=== PATIENT | female | born 1970 | race Caucasian/White ===

== ENCOUNTER 2022-04-17 08:19 | Emergency (ER) | payer OTHER, SELFPAY ==
[2022-04-17 08:21] VITALS: BP 170/80; PULSE 95; RESP 16; TEMP 36.7; O2SAT 97; BMI 43.2
--- NOTE | 2022-04-17 09:19 | ED.EAR ---
HPI - Ear Problem General Chief complaint: Ear Problems Stated complaint: ear infection Time Seen by Provider: 04/17/22 08:52 Source: patient Mode of arrival: ambulatory Limitations: no limitations History of Present Illness HPI Narrative: This is a 51-year-old female with a history of diabetes, hypertension who presents with bilateral ear pain for the last several weeks. Patient reports pressure in the ears, popping sensation, pain right greater than left. Patient reports over [place] she had several days of subjective fevers and chills. This has resolved. She denies any hearing loss, fever currently, neck pain or neck stiffness, sore throat, congestion, headache, difficulty breathing, chest pain, abdominal pain, vomiting or diarrhea. Patient reports she currently has a primary care doctor at [facility] but has not seen them for this issue. Patient reports her partners ex works in medical records at [employer] and is currently stalking her. Therefore she has been hesitant to see her providers at [facility] d/t this. Related Data Previous Rx's Medication Instructions Recorded amoxicillin 500 mg capsule 500 mg PO BID #20 caps 04/17/22 Allergies Allergy/AdvReac Type Severity Reaction Status Date / Time lisinopril AdvReac Cough Verified 04/17/22 08:24 Review of Systems Review of Systems: Yes all other systems are reviewed and are negative Constitutional: Constitutional: Reports no additional constitutional complaints, Denies body ache(s), Denies chills, Denies fever(s), Denies headache(s) and Denies weakness Eyes: Eyes: Reports no additional eye complaints and Denies change in vision ENT: Reports system reviewed and no additional complaints, except as documented, Denies dizziness, Denies ear discharge, Reports otalgia, Denies headache(s), Denies hearing loss, Denies nasal congestion, Denies nasal discharge and Denies neck pain Cardiovascular: Cardiovascular: Reports no additional cardiovascular complaints, Denies chest pain, Denies leg edema and Denies dyspnea Respiratory: Respiratory: Reports no additional respiratory complaints, Denies cough and Denies dyspnea Gastrointestinal: Gastrointestinal: Reports no additional gastrointestinal complaints, Denies abdominal pain, Denies diarrhea, Denies nausea and Denies vomiting Genitourinary: Genitourinary: Reports no additional female genitourinary complaints and Denies urinary incontinence Musculoskeletal: Musculoskeletal: Reports no additional musculoskeletal complaints, Denies back pain, Denies arthralgias, Denies joint swelling, Denies neck pain, Denies numbness and Denies tingling Integumentary/Breasts: Skin/Breast: Reports system reviewed and no additional complaints, except as docu and Denies rash Neurologic: Reports system reviewed and no additional complaints, except as documented, Denies dizziness, Denies headache(s), Denies numbness, Denies tingling and Denies weakness [facility] Past Medical History Attestation statement: The following information was validated with the patient. Source: old records reviewed and nursing notes reviewed Social History Social History Advance Directives: No Advance Directives Information Provided: No Physical Exam Vital Signs: Vital Signs: Last Vital Signs Temp 98.1 F 04/17/22 08:21 Pulse 95 04/17/22 08:21 Resp 16 04/17/22 08:21 BP 170/80 H 04/17/22 08:21 Pulse Ox 97 04/17/22 08:21 O2 Del Method 04/17/22 08:21 BMI result Body Mass Index 43.2 Const: General: cooperative, healthy appearing, comfortable and no acute distress Orientation/consciousness: patient oriented x3 Limitations: no limitations HEENT: Head: Yes normal to inspection Ears: hearing grossly normal bilaterally, EAC's normal, mastoids normal, no periauricular adenopathy and TM abnormal (Bilateral TM bulging with effusion. Right TM with erythema) General nose exam: Normal external nose present Face and sinus: Yes normal facial exam Mouth: Normal oral and palatal mucosa present Throat: Yes posterior oropharynx normal, Yes tonsils normal and Yes uvula midline Eyes: General: appearance normal, both eyes and all related structures Pupils: Equal, round and reactive pupils present Neck: Neck: Yes normal visual inspection, Yes full ROM and Yes no lymphadenopathy Chest: Chest palpation & inspection: normal inspection of the chest Resp: Effort & Inspection: normal respiratory effort Auscultation: clear to auscultation bilaterally Cardio: Rate: regular rate Rhythm: regular rhythm Peripheral pulses: Peripheral pulses 2+ throughout Back/Spine/Pelvis: Thoracic/Lumbar Spine: thoracic and lumbar spine normal to inspection Skin: General skin exam: no rashes or lesions noted Neuro: General: patient oriented x3 and moves all extremities Cranial nerves: Yes Equal, round and reactive pupils present Cognition (Neuro): normal cognition Gait exam (Neuro): Normal gait present Extrem: General: Yes normal to inspection Medical Decision Making Medical Decision Making MDM Narrative: 51-year-old female with history of diabetes presents with bilateral ear pain right greater than left for several weeks with prodrome of febrile illness which has now resolved. Exam is consistent bilateral effusion, bulging with right otitis media No evidence of mastoiditis, otitis externa Patient be treated with course of antibiotics. Recommend [id number] allergy medication, Sudafed to help with bilateral effusion Differential Diagnosis Differential Diagnoses: The differential diagnosis associated with the presentation includes Mastoiditis, otitis externa, otitis media Independent Historian Clinical information obtained from an independent historian. History obtained from or confirmed by: Spouse (Spouse at bedside provides additional HPI) Prescription Management I considered prescription management with: Antibiotic Antibiotic treatment with amoxicillin for right otitis media Chronic Conditions Patient?s care impacted by: Diabetes Discharge Plan Discharge Clinical Impression: Otitis media, Eustachian tube dysfunction Patient Disposition: Home, Self-Care Instructions: Ear Infection (ED) Additional Instructions: Take Motrin or Tylenol for pain as needed Take Claritin or Zyrtec daily Take Sudafed daily Follow-up with your primary care doctor to determine resolution Prescriptions: New amoxicillin 500 mg capsule 500 mg PO BID Qty: 20 0RF Referrals: Nadya Garcia PA [Primary Care Provider] - 10 days Interventions: ED Discharge Assessment Last Done: 04/17/22 09:40 Discharge Date/Time: 04/17/22 09:42
== END 2022-04-17 09:42 | disposition home or self-care (01) ==
PROVIDERS: Emergency Provider Student in an Organized Health Care Education/Training Program; PCP Student in an Organized Health Care Education/Training Program
DX: H66.93 Otitis media, unspecified, bilateral (principal); H69.81 Other specified disorders of Eustachian tube, right ear; E11.9 Type 2 diabetes mellitus without complications; I10 Essential (primary) hypertension
CPT/HCPCS: 99282; 99283

== ENCOUNTER 2024-03-05 19:13 | Emergency (ER) | payer OTHER, SELFPAY ==
--- NOTE | ~2024-03-05 | CT_ITS ---
EXAMINATION CT HEAD WITHOUT CONTRAST CLINICAL INFORMATION: Occipital headache COMPARISON: None TECHNIQUE: CT of the head was performed without intravenous contrast. Reformatted axial, coronal, and sagittal images were reviewed. This CT examination was performed using dose optimization techniques as appropriate, variously including the following: *Automated exposure control *Adjustment of mA and/or kV according to patient size (this includes techniques or standardized protocols for targeted exams where dose is matched to indication/reason for exam; i.e. extremities or head) *Use of iterative reconstruction technique DLP: 800 mGy-cm FINDINGS: No intracranial hemorrhage, extra-axial fluid collection, or midline shift is identified. Menjivar-white matter differentiation is preserved. The ventricles are within normal limits. Basal cisterns are within normal limits. Paranasal sinuses are clear. Mastoid air cells and middle ear cavities are clear. No acute calvarial fractures. CT/CT head/brain wo IV con IMPRESSION: No acute intracranial abnormality. Electronically signed by: Romeo Balderas DO 03/05/2024 11:06 PM ANDRE
[2024-03-05 19:15] VITALS: BP 118/57; PULSE 75; RESP 18; TEMP 37.2; O2SAT 97; BMI 37.2
--- NOTE | 2024-03-05 19:15 | ED.GENADULT ---
HPI - General Adult General Chief complaint: Abdominal Pain Stated complaint: neck/headache, symptoms of pancreatitis Time Seen by Provider: 03/05/24 20:21 History of Present Illness ED Provider: Huber ROBIN narrative: The patient is a 53-year-old female with a history of multiple medical problems. She says that in 2018 she had an episode of severe pancreatitis. At that time she was living in [place]. She says she was in the intensive care unit for several days. She also says that her hemoglobin A1c and her triglycerides were very high at that time. She says that subsequently she had her gallbladder removed although she does not believe she had gallstone pancreatitis (she is not sure however). The patient says that she has been having upper abdominal pain in the same area as her pancreatitis pain over the last several days. The pain is worse with eating. The patient also says that she has been having pain in the back of her head also over the last several days. She says this pain is also worse with eating. Related Data Home Medications ?Medication ?Instructions ?Recorded ?Confirmed atorvastatin 40 mg tablet 40 mg PO DAILY 03/05/24 03/05/24 clonidine HCl 0.3 mg tablet 0.3 mg PO BID 03/05/24 03/05/24 donepezil 5 mg tablet 5 mg PO DAILY 03/05/24 03/05/24 ergocalciferol (vitamin D2) 1,250 1,250 mcg PO QWEEK 03/05/24 03/05/24 mcg (50,000 unit) capsule fenofibrate 160 mg tablet 160 mg PO DAILY 03/05/24 03/05/24 flash glucose sensor (FreeStyle 03/05/24 03/05/24 Chilo 2 Sensor kit) hydrochlorothiazide 25 mg tablet 25 mg PO DAILY 03/05/24 03/05/24 insulin glargine 100 unit/mL 60 unit subcut 03/05/24 subcutaneous solution (Lantus U-100 Insulin) insulin lispro 100 unit/mL subcut 03/05/24 subcutaneous pen levothyroxine 100 mcg tablet 100 mcg PO DAILY 03/05/24 03/05/24 losartan 50 mg tablet 50 mg PO DAILY 03/05/24 03/05/24 metformin 500 mg tablet 1,000 mg PO BID 03/05/24 03/05/24 minoxidil 2.5 mg tablet PO 03/05/24 nortriptyline 25 mg capsule 25 mg PO BEDTIME 03/05/24 03/05/24 omeprazole 20 mg capsule,delayed 20 mg PO DAILY 03/05/24 03/05/24 release pregabalin 200 mg capsule 200 mg PO BID 03/05/24 03/05/24 sertraline 100 mg tablet 100 mg PO DAILY 03/05/24 03/05/24 spironolactone 25 mg tablet 25 mg PO BID 03/05/24 03/05/24 Previous Rx's ?Medication ?Instructions ?Recorded amoxicillin 500 mg capsule 500 mg PO BID #20 caps 04/17/22 Allergies Allergy/AdvReac Type Severity Reaction Status Date / Time lisinopril AdvReac Cough Verified 03/05/24 19:21 Review of Systems Review of Systems: Yes all other systems are reviewed and are negative [facility] Social History Social History Smoked in Last 30 Days: No Use of substances other than those prescribed or required for medical reasons: No Advance Directives: No Advance Directives Information Provided: Yes Physical Exam ED Vital Signs: Vital Signs - 24 hr 03/05/24 19:15 03/05/24 22:10 03/05/24 23:08 Temperature 98.9 F 98.5 F 98.1 F Pulse Rate 75 59 63 Respiratory Rate 18 18 18 Blood Pressure 118/57 L 101/52 L 97/48 L Pulse Oximetry 97 95 95 Oxygen Delivery Method Room Air Room Air Room Air BMI result Body Mass Index 37.2 Const Other: The patient is a 53-year-old woman who was awake and alert. She has a BMI of 37. Her mental status seems normal. She looks somewhat chronically ill but does not appear obviously acutely ill. Does not seem in obvious discomfort or altered in any way. HENMT Other: Face is symmetrical. Mucous membranes are moist. There is some tenderness to the right occipital scalp. No definite mass or other distinct abnormality appreciated. Eyes Other: Pupils are round equal, conjunctivae are clear, extraocular movements intact Neck Neck: Yes full ROM and Yes supple Resp Effort & Inspection: normal respiratory effort Auscultation: clear to auscultation bilaterally Cardio Rate: regular rate Rhythm: regular rhythm Heart sounds: S1 normal heart sound present and S2 normal heart sound present GI Other: There is some epigastric and general upper abdominal tenderness, mostly in the left upper quadrant. No definite rebound or guarding. The patient indicates that she feels there is a swelling or mass in the left upper abdomen. I do not appreciate any definite discrete mass. Skin General skin exam: no rashes or lesions noted Neuro Other: The patient is awake and alert normal mental status. Cranial nerves are grossly intact. Her neck is supple. She moves her extremities symmetrically with normal strength and coordination and seems to be neurologically intact. Extrem Other: No peripheral edema, no asymmetry Course Course Course Narrative: This is a rapid medical exam performed by Delmer Fernandez NP: Additional HPI, ROS, PE not included below will be deferred to primary provider. Patient is a 53-year-old female with history of pancreatitis, insulin dependent T2DM, fibromyalgia, dementia presenting to the emergency department with complaint of upper abdominal pain x 1 week, nausea/dry heaves. Had an unrelated ultrasound yesterday and pain increased with pressure to upper abdomen. Took an old dilaudid yesterday which did not help. Also complaining of occipital pain, describes as pain to the skin, specifies that it is not a headache. Both symptoms worse with eating. Abdominal pain radiating through to back. Plan: labs, viral serology Medications Administered Discontinued Medications Generic Name Dose Route Start Last Admin Trade Name Clover PRN Reason Stop Dose Admin Diphenhydramine HCl 25 mg 03/05/24 20:57 03/05/24 21:37 Diphenhydramine Hcl 50 Mg/Ml Vial IVPUSH 03/05/24 20:58 25 mg ONCE ONE Administration Sodium Chloride 1,000 mls @ 999 mls/hr 03/05/24 21:00 03/05/24 23:00 Ns IV 03/05/24 22:00 Infused .Q1H1M ELEAZAR Infusion Ketorolac Tromethamine 10 mg 03/05/24 20:57 03/05/24 21:37 Ketorolac Tromethamine 15 Mg/Ml Vial IVPUSH 03/05/24 20:58 10 mg ONCE ONE Administration Metoclopramide HCl 10 mg 03/05/24 20:57 03/05/24 21:37 Metoclopramide Hcl 10 Mg/2 Ml Vial IVPUSH 03/05/24 20:58 10 mg ONCE ONE Administration Medical Decision Making Medical Decision Making MDM Narrative: The patient is a 53-year-old female with a complex past medical history who presents complaining of upper abdominal pain and also occipital headaches over the last few days. Both of these symptoms seem to be related to and exacerbated by eating. The patient is already on a proton pump inhibitor. The the patient has a history of a significant episode of pancreatitis several years ago. She does not seem to describe recurrent episodes. She was worried that her upper abdominal pain today might represent a recurrence. The patient's lipase is normal as are her other labs. She was reassured she does not seem to have recurrent pancreatitis. The patient was also quite concerned about her headache. A head CT is negative. She was treated with IV ketorolac, metoclopramide, and diphenhydramine. She seemed to feel better. I think she may be discharged and should follow up with her PCP regarding these complaints of upper abdominal pain and her occipital headache. Lab Data 03/05/24 19:48 03/05/24 19:47 Labs: Lab Results 03/05/24 03/05/24 03/05/24 Range/Units 19:47 19:48 20:00 WBC 3.6 L (4.8-10.8) X10*3/uL RBC 4.57 (4.20-5.50) X10*6/uL Hgb 12.5 (12.0-16.0) g/dl Hct 37.0 (37.0-47.0) % MCV 81.0 (80.0-98.0) fL MCH 27.4 (27.0-33.0) pg MCHC 33.8 (31.0-35.0) g/dl RDW 15.4 (11.0-16.0) % Plt Count 168 (160-400) X10*3/uL MPV 10.6 (9.4-12.3) fL Immature Gran % (Auto) 0.3 (0.0-0.4) % Neut % (Auto) 62.3 (45-73) % Lymph % (Auto) 30.5 (20-40) % [place] % (Auto) 5.0 (2-11) % Eos % (Auto) 1.1 (0-4) % Baso % (Auto) 0.8 (0-2) % Lymph # (Auto) 1.1 L (1.2-4.9) X10*3/uL [place] # (Auto) 0.2 (0.1-1.2) X10*3/uL Eos # (Auto) 0.0 (0.0-0.4) X10*3/uL Baso # (Auto) 0.0 (0.0-0.2) X10*3/uL Abs Immat Gran (auto) 0.01 (0.00-0.03) X10*3/uL Absolute Neuts (auto) 2.3 (2.0-8.3) x10*3/uL Absolute Nucleated RBC 0.000 (0.0-0.012) X10*3/uL Nucleated RBC % (auto) 0.0 (0.0-0.2) /100WBC PT 12.4 (10.9-12.4) SEC INR 1.1 (0.9-1.1) Sodium 140 (135-145) mmol/L Potassium 3.8 (3.3-5.1) mmol/L Chloride 103 (96-108) mmol/L Carbon Dioxide 24 (22-29) mmol/L Anion Gap 17 (12-20) BUN 29 H (9-16) mg/dL Creatinine 1.07 (0.5-1.4) mg/dL Estim Creat Clear Calc 71.7 Estimated GFR 54 Random Glucose 178 H (60-115) mg/dL Calcium 8.8 (8.4-10.2) mg/dL Total Bilirubin 0.3 (0.0-1.0) mg/dL AST 28 (5-31) U/L ALT 23 (0-31) U/L Alkaline Phosphatase 41 (39-117) U/L Total Protein 7.2 (6.5-8.0) g/dL Albumin 4.2 (3.5-5.0) g/dL Amylase 47 (28-100) U/L Lipase 17 (8-78) U/L Urine Color Dark Yellow Urine Appearance Clear Urine pH 5.5 (5.0-9.0) Ur Specific [place] >= 1.030 H (1.005-1.025) Urine Protein Negative (Neg-Trace) mg/dL Urine Glucose (UA) Negative (Negative) mg/dL Urine Ketones Trace (Negative) mg/dL Urine Blood Negative (Negative) Urine Nitrite Negative (Negative) Ur Leukocyte Esterase Small (1+) H (Negative) Urine RBC 0-2 (0-2) /HPF Urine WBC 0-5 (0-5) /HPF Ur Squamous Epith Cells 6-10 (0-2) /HPF Urine Bacteria None Seen (None Seen) Hyaline Casts 6-10 (0-2) /LPF Granular Casts Present Influenza Type A (PCR) NEGATIVE (Negative) Influenza Type B (PCR) NEGATIVE (Negative) RSV RNA Qual (PCR) NEGATIVE (Negative) SARS-CoV-2 RNA (RT-PCR) NEGATIVE (Negative) Discharge Plan Discharge Clinical Impression: Occipital headache, Epigastric pain Patient Disposition: Home, Self-Care Additional Instructions: Your blood testing is reassuring. There is no sign of pancreatitis. The official result of your head CT is not yet available. We will call you at [phone] if there are any concerning findings. Please contact your regular doctor's office tomorrow to make a follow up appointment to discuss these symptoms further. Return to the emergency room if significantly worse. Prescriptions: No Action amoxicillin 500 mg capsule 500 mg PO BID Qty: 20 0RF losartan 50 mg tablet 50 mg PO DAILY atorvastatin 40 mg tablet 40 mg PO DAILY donepezil 5 mg tablet 5 mg PO DAILY insulin glargine [Lantus U-100 Insulin] 100 unit/mL solution 60 unit subcut clonidine HCl 0.3 mg tablet 0.3 mg PO BID levothyroxine 100 mcg tablet 100 mcg PO DAILY hydrochlorothiazide 25 mg tablet 25 mg PO DAILY insulin lispro 100 unit/mL insulin pen subcut fenofibrate 160 mg tablet 160 mg PO DAILY (DME) FreeStyle Chilo 2 Sensor Kit MISCELLANEOUS metformin 500 mg tablet 1,000 mg PO BID sertraline 100 mg tablet 100 mg PO DAILY minoxidil 2.5 mg tablet PO spironolactone 25 mg tablet 25 mg PO BID nortriptyline 25 mg capsule 25 mg PO BEDTIME omeprazole 20 mg capsule,delayed release(DR/EC) 20 mg PO DAILY ergocalciferol (vitamin D2) 1,250 mcg (50,000 unit) capsule 1,250 mcg PO QWEEK pregabalin 200 mg capsule 200 mg PO BID Referrals: Casandra Vernon MD [Primary Care Provider] - (headache, epigastric pain) Interventions: ED Discharge Assessment Last Done: 03/05/24 23:08 Discharge Date/Time: 03/05/24 23:11 Print Language: Yi
--- NOTE | 2024-03-05 19:28 | PC.NURSE ---
pt from triage, assume care of pt at this time
[2024-03-05 19:53] LABS: MANUAL DIFF FLAG NO
[2024-03-05 19:54] LABS: Basophils Percent Auto 0.8 % (0-2); Eosinophils Percent Auto 1.1 % (0-4); Hemoglobin 12.5 g/dl (12.0-16.0); Imm Gran Abs Auto 0.01 X10*3/uL (0.00-0.03); Imm Gran Pct Auto 0.3 % (0.0-0.4); Lymphocytes Absolute Auto 1.1 X10*3/uL (1.2-4.9); Lymphocytes Percent Auto 30.5 % (20-40); Mean Corpuscular HGB Conc 33.8 g/dl (31.0-35.0); Mean Corpuscular Hemoglobin 27.4 pg (27.0-33.0); Mean Platelet Volume 10.6 fL (9.4-12.3); Monocytes Absolute Auto 0.2 X10*3/uL (0.1-1.2); Neutrophils Absolute Auto 2.3 x10*3/uL (2.0-8.3); Neutrophils Percent Auto 62.3 % (45-73); Platelet Count 168 X10*3/uL (160-400); Red Blood Count 4.57 X10*6/uL (4.20-5.50); Red Cell Distribution Width 15.4 % (11.0-16.0); White Blood Count 3.6 X10*3/uL (4.8-10.8)
[2024-03-05 19:59] LABS: INTERNATIONAL NORM RATIO 1.1 (0.9-1.1); Prothrombin Time 12.4 SEC (10.9-12.4)
[2024-03-05 20:06] LABS: Appearance Urine Clear; Color Urine Dark Yellow; Glucose Urine UA Negative (Negative); Leukocyte Esterase Urine Small (1+) (Negative); Nitrite Urine Negative (Negative); PH 5.5 (5.0-9.0); Specific Gravity - Urine >= 1.030 (1.005-1.025); UMIC TRIGGER UACC YES; Urine Blood Negative (Negative); Urine Ketones Trace mg/dL (Negative); Urine Protein Negative (Neg-Trace)
[2024-03-05 20:12] LABS: Alanine Aminotransferase 23 U/L (0-31); Albumin Level 4.2 g/dL (3.5-5.0); Alkaline Phosphatase 41 U/L (39-117); Amylase 47 U/L (28-100); Anion Gap 17 (12-20); Aspartate Amino Transferase 28 U/L (5-31); Bilirubin Total 0.3 mg/dL (0.0-1.0); Blood Urea Nitrogen 29 mg/dL (9-16); Calcium 8.8 mg/dL (8.4-10.2); Carbon Dioxide 24 mmol/L (22-29); Chloride 103 mmol/L (96-108); Creatinine Clr Calc Pharmacy 71.7; Estimated Glomerular Filt Rate 54; Glucose Random 178 mg/dL (60-115); Lipase 17 U/L (8-78); Potassium 3.8 mmol/L (3.3-5.1); Sodium 140 mmol/L (135-145); Total Protein 7.2 g/dL (6.5-8.0)
[2024-03-05 20:16] LABS: Bacteria Urine None Seen (None Seen); Granular Casts Urine Present; RBC Urine 0-2 /HPF (0-2); UACC Culture Trigger YES; WBC Urine 0-5 /HPF (0-5)
[2024-03-05 20:33] LABS: Influenza A PCR NEGATIVE (Negative); Influenza B PCR NEGATIVE (Negative); Resp Syncy Virus RNA Qual PCR NEGATIVE (Negative); SARS COV2 PCR INHOUSE NEGATIVE (Negative)
[2024-03-05] MEDS: 0.9 % Sodium Chloride 1,000 ML 999 ML IV (21:36)
[2024-03-05] MEDS: Metoclopramide HCl 10 MG/2 ML VIAL IVPUSH (21:37)
[2024-03-05] MEDS: diphenhydrAMINE HCL 50 MG/ML VIAL 25 MG IVPUSH (21:37)
[2024-03-05] MEDS: Ketorolac Tromethamine 15 MG/ML VIAL 10 MG IVPUSH (21:37)
[2024-03-05 22:10] VITALS: BP 101/52; PULSE 59; RESP 18; TEMP 36.9; O2SAT 95
[2024-03-05 23:08] VITALS: BP 97/48; PULSE 63; RESP 18; TEMP 36.7; O2SAT 95
== END 2024-03-05 23:11 | disposition home or self-care (01) ==
PROVIDERS: Registered Nurse Emergency; Emergency Provider Emergency Medicine; PCP Internal Medicine
DX: R51.9 Headache, unspecified (principal); R10.13 Epigastric pain; Z03.818 Encounter for observation for suspected exposure to other biological agents ruled out; E11.9 Type 2 diabetes mellitus without complications; Z79.4 Long term (current) use of insulin
CPT/HCPCS: 0241U; 70450; 80053; 81001; 82150; 83690; 85025; 85610; 87086; 96361; 96374; 96375; 99284; 99285; J1200; J1885; J2765